=== PATIENT | male | born 1970 | race Hispanic/Latino ===

== ENCOUNTER 2016-04-07 09:02 | Day surgery (SDC) | payer OTHER ==
[~2016-04-07] VITALS: Ht 165.1 cm; Wt 73.4 kg
[~2016-04-07 09:02] MED LIST: APRESOLINE100 MG PO; AUGMENTIN875 MG PO; AZELASTINE137 MCG/0. BOTH NARES; COREG6.25 M1 PO; FLONASE16 G1 BOTH NARES; ISOSORBIDE MONO30 MG PO; LASIX80 MG PO; LIPITOR80 MG PO; METOLAZONE5 MG PO; NEURONTIN300 MG PO; NORCO 5/3251 TABLET PO; NORVASC10 MG PO; NOVOLOG 10100 UNITS/ SC; NOVOLOG PE100 UNITS/ SC; PHOSLYRA667 MG/5 M PO; SINGULAIR10 MG PO; TRESIBA FL100 UNIT/1 SC; ULTRAM50 MG PO; UNITHROID100 MCG PO; VENTOLIN HFA18 GM IH; VITAMIN D5000 UNI1 PO
[2016-04-07 09:58] VITALS: BP 119/64
[2016-04-07 09:59] LABS: HEMATOCRIT 21.6 % (38.0-50.0); MCH 29.6 PG (29.0-34.0); MCHC 32.9 G/DL (30.0-36.0); MEAN PLAT.VOLUME 10.5 uM^3 (9.0-12.4); PLATELET COUNT 168 K/uL (156-360); RBC DIS.WIDTH-CV 12.7 % (11.8-14.6); RBC DIS.WIDTH-SD 39.9 % (39-53); WHITE BLOOD COUNT 6.2 K/uL (4.1-10.2)
[2016-04-07 10:01] LABS: POINT-OF-CARE METER ID UU14174212
[2016-04-07 10:08] LABS: CHLORIDE 111 mEq/L (99-109); POTASSIUM 4.6 mEq/L (3.7-5.4); SODIUM 142 mEq/L (136-147)
[2016-04-07 10:10] LABS: GLUCOSE 82 mg/dL (70-99)
[2016-04-07 10:11] LABS: ANION GAP 11 MEQ/L (2-14)
[2016-04-07 10:13] LABS: GFR ESTIMATE (CALCULATED) 6 mL/min/
[2016-04-07 10:14] LABS: UREA NITROGEN (BUN) 99 mg/dL (9-23)
[2016-04-07 23:41] VITALS: BP 138/78
== END 2016-04-08 00:07 | disposition home or self-care (01) ==
LOC: SDC 09:02
PROVIDERS: Surgery
PROC: 3C1ZX8Z Irrigation of Indwelling Device using Irrigating Substance, External Approach (ICD-10-PCS; principal; 2016-04-07)
PROC: 0WW Anatomical Regions, General, Revision (ICD-10-PCS; 2016-04-07)
PROC: 0WWG40Z Revision of Drainage Device in Peritoneal Cavity, Percutaneous Endoscopic Approach (ICD-10-PCS; 2016-04-07)
PROC: 0JN83ZZ Release Abdomen Subcutaneous Tissue and Fascia, Percutaneous Approach (ICD-10-PCS; 2016-04-07)
DX: T85.828A Fibrosis due to other internal prosthetic devices, implants and grafts, initial encounter (principal); T85.898A Other specified complication of other internal prosthetic devices, implants and grafts, initial encounter; Y83.8 Other surgical procedures as the cause of abnormal reaction of the patient, or of later complication, without mention of misadventure at the time of the procedure; K66.0 Peritoneal adhesions (postprocedural) (postinfection); Z99.2 Dependence on renal dialysis; I12.0 Hypertensive chronic kidney disease with stage 5 chronic kidney disease or end stage renal disease; E11.22 Type 2 diabetes mellitus with diabetic chronic kidney disease; N18.6 End stage renal disease; E03.9 Hypothyroidism, unspecified; E78.4 Other hyperlipidemia; Z79.4 Long term (current) use of insulin; E11.21 Type 2 diabetes mellitus with diabetic nephropathy
CPT/HCPCS: 80048; 82948; 85027; 87340; J0690; J1644; J2405; J2710; J3010; S0020

== ENCOUNTER 2017-11-02 13:01 | Day surgery (SDC) | payer OTHER ==
[~2017-11-02] VITALS: Ht 165.1 cm; Wt 78.9 kg
[~2017-11-02 13:01] MED LIST changes: -APRESOLINE100 MG PO; +APRESOLINE50 MG PO; +IMDUR60 MG PO; -ISOSORBIDE MONO30 MG PO; +PHOSLO PO; +PRINIVIL10 MG PO; +VITAMIN D35000 UNIT PO
[2017-11-02 14:07] LABS: HEMATOCRIT 35.4 % (38.0-50.0); HEMOGLOBIN 12.2 G/DL (12.5-16.6); MCH 33.4 PG (29.0-34.0); MCHC 34.5 G/DL (30.0-36.0); PLATELET COUNT 210 K/uL (156-360); RBC DIS.WIDTH-CV 15.3 % (11.8-14.6); RBC DIS.WIDTH-SD 54.5 % (39-53); RED BLOOD COUNT 3.65 M/uL (4.00-5.50); WHITE BLOOD COUNT 7.7 K/uL (4.1-10.2)
[2017-11-02] MEDS ORDERED: CALCIUM ACETAT667 MG PO (14:13)
[2017-11-02] MEDS ORDERED: VASCEPA0.5 GM PO (14:14)
[2017-11-02 14:21] VITALS: BP 175/91
[2017-11-02 14:49] LABS: CHLORIDE 99 mEq/L (99-109); POTASSIUM 5.8 mEq/L (3.7-5.4); SODIUM 141 mEq/L (136-147)
[2017-11-02 14:51] LABS: GLUCOSE 84 mg/dL (70-99)
[2017-11-02 14:55] LABS: CREATININE 17.1 mg/dL (0.6-1.3); GFR ESTIMATE (CALCULATED) 3 mL/min/ (58.99-99999)
[2017-11-02 14:56] LABS: UREA NITROGEN (BUN) 68 mg/dL (9-23)
[2017-11-02] MEDS ORDERED: NORCO 5/3251 TABLET PO (18:47)
[2017-11-02 19:25] VITALS: BP 197/118
[2017-11-02 21:35] VITALS: BP 185/97
== END 2017-11-02 21:44 | disposition home or self-care (01) ==
LOC: SDC 13:01
PROVIDERS: Surgery
DX: E11.22 Type 2 diabetes mellitus with diabetic chronic kidney disease (principal); I13.2 Hypertensive heart and chronic kidney disease with heart failure and with stage 5 chronic kidney disease, or end stage renal disease; N18.6 End stage renal disease; I50.9 Heart failure, unspecified; Z99.2 Dependence on renal dialysis; Z79.4 Long term (current) use of insulin; E78.00 Pure hypercholesterolemia, unspecified; E03.9 Hypothyroidism, unspecified; Z85.47 Personal history of malignant neoplasm of testis
CPT/HCPCS: 71045; 80048; 82948; 85027; C1788; J0690; J1644; J2250; J3010